=== PATIENT | male | born 2000 | race Caucasian/White ===

== ENCOUNTER 2018-08-23 22:14 | Emergency (ER) | payer OTHER ==
[~2018-08-23] VITALS: Ht 177.8 cm; Wt 72.6 kg
[~2018-08-23 22:14] MED LIST: DEXM10TA PO
[2018-08-23 22:19] VITALS: BP 105/59
--- NOTE | 2018-08-23 22:23 | NUR ---
TO LOBBY A/W BED , AMBULATORY
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
--- NOTE | 2018-08-23 23:05 | NUR ---
EMT CLEANING WOUNDS AT BEDSIDE.
--- NOTE | 2018-08-24 01:00 | NUR ---
DR. MCKEON EVALUATING AT BEDSIDE.
[2018-08-24] MEDS ORDERED: BACITRACIN OINT 500 UNITS/GM PKT TP ONE ×2 (01:15→01:26)
[2018-08-24 01:25] VITALS: BP 108/72
== END 2018-08-24 01:25 | disposition home or self-care (01) ==
LOC: MED 22:14
DX: S61.411A Laceration without foreign body of right hand, initial encounter (principal); Z79.899 Other long term (current) drug therapy; V13.4XXA Pedal cycle driver injured in collision with car, pick-up truck or van in traffic accident, initial encounter; Y93.89 Activity, other specified; Y92.488 Other paved roadways as the place of occurrence of the external cause; Y99.8 Other external cause status
CPT/HCPCS: 99282